=== PATIENT | female | born 1960 | race Caucasian/White ===

== ENCOUNTER 2021-02-19 18:15 | Emergency (ER) | payer MEDICARE, OTHER ==
[2021-02-19] MEDS ORDERED: Lidocaine 2% 20 ml MDV ONE (18:35)
[2021-02-19] MEDS ORDERED: Sulfameth/Trimethoprim DS 800-160mg TAB ONE (18:35)
[2021-02-19] MEDS ORDERED: Ketorolac Tromethamine 30 MG/ML VIAL ONE (18:35)
[2021-02-19] MEDS ORDERED: Boostrix 0.5 ML (Tdap) VIAL ONE (18:36)
[2021-02-19] MEDS ORDERED: Bacitracin 1 PK ONE (19:27)
== END 2021-02-19 19:38 | disposition home or self-care (01) ==
LOC: BURERS 18:15
DX: N61.1 Abscess of the breast and nipple (principal)
CPT/HCPCS: 10061; 90471; 90715; 96372; J1885